=== PATIENT | male | born 1955 | race Hispanic/Latino ===

== ENCOUNTER 2019-12-28 14:17 | Inpatient (IN) | payer OTHER, SELFPAY ==
--- NOTE | 2019-12-28 15:01 | Emergency Department Report ---
ED Neuro Deficit HPI - General Chief Complaint: Extremity Injury, Lower Stated Complaint: FALL Time Seen by Provider: 12/28/19 14:49 Source: EMS Mode of arrival: Ambulatory Limitations: Physical Limitation - History of Present Illness Initial Comments: Patient is 64 years old male with history of hypertension. Patient brought to the emergency room via EMS for evaluation of right leg weakness. Patient stated that he woke up this morning around 7 AM and he wanted to walk and then his left leg gave up on him and fell. Patient stated that he did not hit his head or neck. Patient stated that since then he is unable to walk because his left leg is very weak. Patient also stated that he has been dizzy however he denied any visual symptoms or speech symptoms. Patient also denied any back pain or neck pain or any recent injury. Last when known time was 2:30 AM. First contact with the patient at 2:50 PM. Code stroke immediately initiated and patient moved to CT for stat CT brain without contrast. Stroke telemetry neurology immediately consulted. -: This morning Location: left leg History of same: No Place: home Associated Symptoms: denies other symptoms - Related Data Home Medications: Previous Rx's Medication Instructions Recorded Last Taken Type Aspirin EC [Halfprin EC] 81 mg PO QDAY #60 tablet 12/31/19 Unknown Rx AtorvaSTATin [Lipitor] 80 mg PO QHS #60 tablet 12/31/19 Unknown Rx Clopidogrel [Plavix] 75 mg PO QDAY #30 tablet 12/31/19 Unknown Rx Metoprolol 50 mg PO BID #60 12/31/19 Unknown Rx glipiZIDE [Glucotrol] 5 mg PO BID #60 12/31/19 Unknown Rx metFORMIN 500 mg PO BID #60 12/31/19 Unknown Rx Allergies/Adverse Reactions: Allergies Allergy/AdvReac Type Severity Reaction Status Date / Time No Known Allergies Allergy Unverified 12/28/19 17:33 ED Review of Systems ROS: Stated complaint: FALL Other details as noted in HPI Comment: All other systems reviewed and negative Constitutional: denies: chills, fever Respiratory: denies: cough Cardiovascular: denies: chest pain, palpitations Gastrointestinal: denies: abdominal pain, nausea, vomiting Musculoskeletal: denies: back pain Neurological: weakness. denies: headache ED Past Medical Hx - Past Medical History Previous Medical History?: Yes Hx Hypertension: Yes Hx Diabetes: Yes - Surgical History Past Surgical History?: No - Social History Smoking Status: Current Every Day Smoker - Medications Home Medications: Home Medications Medication Instructions Recorded Confirmed Last Taken Type Aspirin EC [Halfprin EC] 81 mg PO QDAY #60 tablet 12/31/19 Unknown Rx AtorvaSTATin [Lipitor] 80 mg PO QHS #60 tablet 12/31/19 Unknown Rx Clopidogrel [Plavix] 75 mg PO QDAY #30 tablet 12/31/19 Unknown Rx Metoprolol 50 mg PO BID #60 12/31/19 Unknown Rx glipiZIDE [Glucotrol] 5 mg PO BID #60 12/31/19 Unknown Rx metFORMIN 500 mg PO BID #60 12/31/19 Unknown Rx ED Neuro Physical Exam - General Limitations: Physical Limitation General appearance: alert, in no apparent distress Suspected Stroke: Yes - Head Head exam: Present: atraumatic, normocephalic, normal inspection - Eye Eye exam: Present: normal appearance - ENT ENT exam: Present: normal exam, normal orophraynx, mucous membranes moist - Neck Neck exam: Present: normal inspection, full ROM. Absent: tenderness, meningismus, lymphadenopathy, thyromegaly - Respiratory Respiratory exam: Present: normal lung sounds bilaterally - Cardiovascular Cardiovascular Exam: Present: regular rate, normal rhythm, normal heart sounds - GI/Abdominal GI/Abdominal exam: Present: soft, normal bowel sounds. Absent: distended, tenderness, guarding, rebound, rigid, organomegaly, mass, bruit, pulsatile mass, hernia - Extremities Exam Extremities exam: Present: normal inspection, full ROM, normal capillary refill. Absent: pedal edema, calf tenderness - Back Exam Back exam: Present: normal inspection, full ROM. Absent: CVA tenderness (R), CVA tenderness (L) - Neurological Exam Neurological exam: Present: alert, oriented X3, CN II-XII intact, motor sensory deficit - NIHSS Assessment Interval: Baseline 1a. Level of Consciousness: alert/keenly responsive 1b. LOC Questions: answers both correctly 1c. LOC Commands: performs tasks correctly 2. Best Gaze: normal 3. Visual: no visual loss 4. Facial Palsy: normal symmetrical movement 5b. Motor Arm Right: no drift 5a. Motor Arm Left: no drift 6a. Motor Leg Left: drift 6b. Motor Leg Right: no drift 7. Limb Ataxia: present 1 limb 8. Sensory: mild/moderate sensory loss 9. Best Language: no aphasia 10. Dysarthria: normal 11. Extinction/Inattention: no abnormality Total Score: 3 Stroke Severity: Minor Stroke - Psychiatric Psychiatric exam: Present: normal mood - Skin Skin exam: Present: warm, intact, normal color ED Course Vital Signs 12/28/19 12/28/19 12/28/19 14:24 14:29 14:31 Temperature 98.1 F Pulse Rate 88 90 Respiratory 13 12 Rate Blood Pressure 162/107 162/107 Blood Pressure 162/107 [Right] O2 Sat by Pulse 95 99 96 Oximetry 12/28/19 12/28/19 12/28/19 14:45 15:06 15:15 Temperature Pulse Rate 86 85 Respiratory 16 17 Rate Blood Pressure 162/107 180/104 180/104 Blood Pressure [Right] O2 Sat by Pulse 96 98 99 Oximetry 12/28/19 12/28/19 12/28/19 15:31 15:45 16:26 Temperature Pulse Rate 84 82 Respiratory 13 17 Rate Blood Pressure 180/104 180/104 180/104 Blood Pressure [Right] O2 Sat by Pulse 98 97 97 Oximetry 12/28/19 12/28/19 12/28/19 16:31 16:45 17:00 Temperature Pulse Rate 104 H 89 88 Respiratory 16 16 16 Rate Blood Pressure 180/104 180/104 176/111 Blood Pressure [Right] O2 Sat by Pulse 93 96 97 Oximetry 12/28/19 12/28/19 12/28/19 17:15 17:31 17:45 Temperature Pulse Rate 88 98 H 98 H Respiratory 16 11 L 19 Rate Blood Pressure 176/111 176/111 176/111 Blood Pressure [Right] O2 Sat by Pulse 98 97 97 Oximetry 12/28/19 12/28/19 12/28/19 18:01 18:15 18:31 Temperature Pulse Rate 86 84 103 H Respiratory 19 15 13 Rate Blood Pressure 183/108 183/108 183/108 Blood Pressure [Right] O2 Sat by Pulse 96 98 97 Oximetry 12/28/19 12/28/19 12/28/19 18:45 18:51 19:00 Temperature Pulse Rate 92 H 88 93 H Respiratory 19 16 14 Rate Blood Pressure 183/108 183/108 190/102 Blood Pressure [Right] O2 Sat by Pulse 96 97 98 Oximetry 12/28/19 12/28/19 12/28/19 19:11 19:21 19:31 Temperature Pulse Rate 113 H 91 H 86 Respiratory 13 15 15 Rate Blood Pressure 190/102 190/102 190/102 Blood Pressure [Right] O2 Sat by Pulse 97 98 97 Oximetry 12/28/19 12/28/19 12/28/19 19:41 19:55 20:00 Temperature Pulse Rate 111 H Respiratory 29 H Rate Blood Pressure 190/102 190/102 190/102 Blood Pressure [Right] O2 Sat by Pulse 99 95 Oximetry 12/28/19 20:27 Temperature Pulse Rate Respiratory Rate Blood Pressure 172/112 Blood Pressure [Right] O2 Sat by Pulse 83 L Oximetry - Lab Data Result diagrams: 12/30/19 08:41 12/30/19 08:41 Lab Results 12/28/19 12/28/19 12/28/19 Range/Units 15:26 15:26 15:26 WBC 18.9 H (4.5-11.0) K/mm3 RBC 4.84 (3.65-5.03) M/mm3 Hgb 14.9 (11.8-15.2) gm/dl Hct 43.2 (35.5-45.6) % MCV 89 (84-94) fl MCH 31 (28-32) pg MCHC 35 H (32-34) % RDW 13.1 L (13.2-15.2) % Plt Count 400 (140-440) K/mm3 Lymph % (Auto) 11.2 L (13.4-35.0) % [place] % (Auto) 7.8 H (0.0-7.3) % Eos % (Auto) 0.5 (0.0-4.3) % Baso % (Auto) 0.2 (0.0-1.8) % Lymph # 2.1 (1.2-5.4) K/mm3 [place] # 1.5 H (0.0-0.8) K/mm3 Eos # 0.1 (0.0-0.4) K/mm3 Baso # 0.0 (0.0-0.1) K/mm3 Seg Neutrophils % 80.3 H (40.0-70.0) % Seg Neutrophils # 15.2 H (1.8-7.7) K/mm3 PT 13.4 (12.2-14.9) Sec. INR 1.00 (0.87-1.13) APTT 26.3 (24.2-36.6) Sec. Thrombin Time 16.3 (15.1-19.6) Sec. Sodium 140 (137-145) mmol/L Potassium 2.8 L* (3.6-5.0) mmol/L Chloride 97.1 L (98-107) mmol/L Carbon Dioxide 30 (22-30) mmol/L Anion Gap 16 mmol/L BUN 9 (9-20) mg/dL Creatinine 0.7 L (0.8-1.3) mg/dL Estimated GFR > 60 ml/min BUN/Creatinine Ratio 13 % Glucose 170 H (75-100) mg/dL Hemoglobin A1c (4-6) % Calcium 9.2 (8.4-10.2) mg/dL Magnesium (1.7-2.3) mg/dL Total Bilirubin (0.1-1.2) mg/dL Direct Bilirubin (0-0.2) mg/dL Indirect Bilirubin mg/dL AST (5-40) units/L ALT (7-56) units/L Alkaline Phosphatase (35-129) units/L Total Creatine Kinase 181 H (55-170) units/L CK-MB (CK-2) 4.1 H (0.0-4.0) ng/mL CK-MB (CK-2) Rel Index 2.2 (0-4) Troponin T < 0.010 (0.00-0.029) ng/mL Total Protein (6.3-8.2) g/dL Albumin (3.9-5) g/dL Albumin/Globulin Ratio % 12/28/19 12/28/19 12/28/19 Range/Units 15:26 15:26 15:26 WBC (4.5-11.0) K/mm3 RBC (3.65-5.03) M/mm3 Hgb (11.8-15.2) gm/dl Hct (35.5-45.6) % MCV (84-94) fl MCH (28-32) pg MCHC (32-34) % RDW (13.2-15.2) % Plt Count (140-440) K/mm3 Lymph % (Auto) (13.4-35.0) % [place] % (Auto) (0.0-7.3) % Eos % (Auto) (0.0-4.3) % Baso % (Auto) (0.0-1.8) % Lymph # (1.2-5.4) K/mm3 [place] # (0.0-0.8) K/mm3 Eos # (0.0-0.4) K/mm3 Baso # (0.0-0.1) K/mm3 Seg Neutrophils % (40.0-70.0) % Seg Neutrophils # (1.8-7.7) K/mm3 PT (12.2-14.9) Sec. INR (0.87-1.13) APTT (24.2-36.6) Sec. Thrombin Time (15.1-19.6) Sec. Sodium (137-145) mmol/L Potassium (3.6-5.0) mmol/L Chloride (98-107) mmol/L Carbon Dioxide (22-30) mmol/L Anion Gap mmol/L BUN (9-20) mg/dL Creatinine (0.8-1.3) mg/dL Estimated GFR ml/min BUN/Creatinine Ratio % Glucose (75-100) mg/dL Hemoglobin A1c 9.1 H (4-6) % Calcium (8.4-10.2) mg/dL Magnesium 1.70 (1.7-2.3) mg/dL Total Bilirubin 0.50 (0.1-1.2) mg/dL Direct Bilirubin < 0.2 (0-0.2) mg/dL Indirect Bilirubin 0.3 mg/dL AST 20 (5-40) units/L ALT 15 (7-56) units/L Alkaline Phosphatase 77 (35-129) units/L Total Creatine Kinase (55-170) units/L CK-MB (CK-2) (0.0-4.0) ng/mL CK-MB (CK-2) Rel Index (0-4) Troponin T (0.00-0.029) ng/mL Total Protein 7.2 (6.3-8.2) g/dL Albumin 4.3 (3.9-5) g/dL Albumin/Globulin Ratio 1.5 % - EKG Data -: EKG Interpreted by Nd EKG shows normal: sinus rhythm Rate: normal Interpretation: no acute changes - Radiology Data Radiology results: report reviewed - Medical Decision Making Patient is 64 years old male with history of hypertension. Patient brought to the emergency room via EMS for evaluation of right leg weakness. Patient stated that he woke up this morning around 7 AM and he wanted to walk and then his left leg gave up on him and fell. Patient stated that he did not hit his head or neck. Patient stated that since then he is unable to walk because his left leg is very weak. Patient also stated that he has been dizzy however he denied any visual symptoms or speech symptoms. Patient also denied any back pain or neck pain or any recent injury. Last when known time was 2:30 AM. First contact with the patient at 2:50 PM. Code stroke immediately initiated and patient moved to CT for stat CT brain without contrast. Stroke telemetry neurology immediately consulted. Patient is not a TPA candidate since he is out of the window. Dr. Carlson stated that patient does not have symptoms of large vessels occlusion. She recommended patient to be admitted for stroke work-up. I discussed the patient with Dr. Raygoza, he agreed to admit the patient to medical service for further management. Critical Care Time: Yes Critical care time in (mins) excluding proc time.: 30 Critical care attestation.: If time is entered above; I have spent that time in minutes in the direct care of this critically ill patient, excluding procedure time. ED Disposition Clinical Impression: Cerebrovascular accident Qualifiers: Laterality of affected vessel: left Disposition: DC-09 OP ADMIT IP TO THIS HOSP Is pt being admited?: Yes Condition: Stable
--- NOTE | 2019-12-28 15:18 | Consultation ---
History of Present Illness Consult date: 12/28/19 History of present illness: [facility] Date of Service: 12/28/2019 14:57:28 Impression: Rule Out Acute Ischemic Stroke Right Hemispheric Infarct Comments/Sign-Out: Right hemispheric minor subcortical ischemic stroke, out of window for IV tPA. No cortical signs and low NIHSS, LVO unlikely. Metrics: Last Known Well: 12/28/2019 02:30:00 [facility] Notification Time: 12/28/2019 14:56:44 Arrival Time: 12/28/2019 14:41:00 Stamp Time: 12/28/2019 14:57:28 Time First Login Attempt: 12/28/2019 14:59:00 Video Start Time: 12/28/2019 14:59:00 Symptoms: left leg weakness NIHSS Start Assessment Time: 12/28/2019 15:05:51 Patient is not a candidate for tPA. Patient was not deemed candidate for tPA thrombolytics because of Last Well Known Above 4.5 Hours. Video End Time: 12/28/2019 15:11:03 CT head showed no acute hemorrhage or acute core infarct. Clinical Presentation is not Suggestive of Large Vessel Occlusive Disease ED Physician notified of diagnostic impression and management plan on 12/28/2019 15:11:06 Our recommendations are outlined below. Recommendations: Activate Stroke Protocol Admission/Order Set Stroke/Telemetry Floor Neuro Checks Bedside Swallow Eval DVT Prophylaxis IV Fluids, Normal Saline Head of Bed 30 Degrees Euglycemia and Avoid Hyperthermia (PRN Acetaminophen) Initiate Aspirin 81 MG Daily Initiate Plavix 75 MG Daily Atorvastatin 80mg Permissive HTN Ischemic stroke order set Routine Consultation with Inhouse Neurology for Follow up Care Sign Out: Discussed with Emergency Department Provider History of Present Illness: Patient is a 64 year old Male. Left handed Patient was brought by EMS for symptoms of left leg weakness Woke up with left leg pain and weakness, lost balance. Last known normal 2:30 when he used restroom. HTN and DM. On daily ASA. Active smoker. No stroke h istory. Also left arm weakness. No speech or visual impairment. Symptoms unchanged since onset/awareness. Past Medical History: Hypertension Diabetes Mellitus Anticoagulant use: No Antiplatelet use: aspirin Examination: BP(162/107), Blood Glucose(pending) 1A: Level of Consciousness - Alert; keenly responsive + 0 1B: Ask Month and Age - Both Questions Right + 0 1C: Blink Eyes & Squeeze Hands - Performs Both Tasks + 0 2: Test Horizontal Extraocular Movements - Normal + 0 3: Test Visual Prince - No Visual Loss + 0 4: Test Facial Palsy (Use Grimace if Obtunded) - Normal symmetry + 0 5A: Test Left Arm Motor Drift - Drift, but doesn't hit bed + 1 5B: Test Right Arm Motor Drift - No Drift for 10 Seconds + 0 6A: Test Left Leg Motor Drift - Drift, but doesn't hit bed + 1 6B: Test Right Leg Motor Drift - No Drift for 5 Seconds + 0 7: Test Limb Ataxia (FNF/Heel-Ramirez) - Ataxia in 1 Limb + 1 8: Test Sensation - Normal; No sensory loss + 0 9: Test Language/Aphasia - Normal; No aphasia + 0 10: Test Dysarthria - Normal + 0 11: Test Extinction/Inattention - No abnormality + 0 NIHSS Score: 3 Patient/Family was informed the Neurology Consult would happen via TeleHealth consult by way of interactive audio and video telecommunications and consented to receiving care in this manner. Due to the immediate potential for life-threatening deterioration due to underlying acute neurologic illness, I spent 35 minutes providing critical care. This time includes time for face to face visit via telemedicine, review of medical records, imaging studies and discussion of findings with providers, the patient and/or family. Dr Latoya Jauregui [facility] Case [id number] Physical Examination - Vital Signs Vital Signs: Vital Signs Temp Pulse Resp BP Pulse Ox 98.2 F 88 13 162/107 99 12/28/19 14:29 12/28/19 14:29 12/28/19 14:29 12/28/19 14:29 12/28/19 14:29
--- NOTE | 2019-12-28 15:22 | Cat Scan Report ---
CT head/brain wo con INDICATION: Stroke symptoms. TECHNIQUE: Routine CT head without contrast. All CT scans at this location are performed using CT dos e reduction for ALARA by means of automated exposure control. COMPARISON: None. FINDINGS: BRAIN / INTRACRANIAL CONTENTS: No acute hemorrhage, mass effect, midline shift, or hydrocephalus. No appreciable acute large territorial or lacunar infarct. There are bilateral chronic appearing lacunar infarcts in the gangliocapsular regions. There is moderate chronic small vessel ischemic change in t he cerebral white matter. ORBITS: No significant abnormality of visualized orbits. SINUSES / MASTOIDS: No significant abnormality of visualized sinuses and mastoid air cells. ADDITIONAL FINDINGS: None. IMPRESSION: 1. No definite acute infarct or other acute intracranial abnormality. 2. Bilateral chronic appearing lacunar infarcts in the gangliocapsular regions. Signer Name: Luisito Myers MD Signed: 12/28/2019 3:17 PM Workstation Name: [id number]
[2019-12-28 15:53] LABS: Basophils % (Auto) 0.2 % (0.0-1.8); Eosinophils # (Auto) 0.1 K/mm3 (0.0-0.4); Eosinophils % (Auto) 0.5 % (0.0-4.3); Hematocrit 43.2 % (35.5-45.6); Hemoglobin 14.9 gm/dl (11.8-15.2); Lymphocytes # (Auto) 2.1 K/mm3 (1.2-5.4); Lymphocytes % (Auto) 11.2 % (13.4-35.0); Mean Corpuscular HGB Conc 35 % (32-34); Mean Corpuscular Volume 89 fl (84-94); Monocytes # (Auto) 1.5 K/mm3 (0.0-0.8); Monocytes % (Auto) 7.8 % (0.0-7.3); Platelet Count 400 K/mm3 (140-440); Red Blood Count 4.84 M/mm3 (3.65-5.03); Red Cell Distribution Width 13.1 % (13.2-15.2)
--- NOTE | 2019-12-28 15:55 | XRay Report ---
CHEST 1 VIEW INDICATION / CLINICAL INFORMATION: stroke. COMPARISON: None available. FINDINGS: SUPPORT DEVICES: None. HEART / MEDIASTINUM: No significant abnormality. LUNGS / PLEURA: No significant pulmonary or pleural abnormality. No pneumothorax. ADDITIONAL FINDINGS: No significant additional findings. IMPRESSION: No acute cardiopulmonary abnormality. Signer Name: Edinson Goel MD Signed: 12/28/2019 3:51 PM Workstation Name: [id number]
[2019-12-28 16:06] LABS: Creatine Kinase MB 4.1 ng/mL (0.0-4.0)
[2019-12-28 16:09] LABS: Blood Urea Nitrogen 9 mg/dL (9-20); Calcium 9.2 mg/dL (8.4-10.2); Hemolysis Index 6
[2019-12-28 16:10] LABS: BUN/Creatinine Ratio 13
[2019-12-28 16:12] LABS: Alanine Aminotransferase 15 units/L (7-56); Albumin 4.3 g/dL (3.9-5)
[2019-12-28 16:14] LABS: Bilirubin,Direct < 0.2 mg/dL (0-0.2); Partial Thromboplastin Time 26.3 Sec. (24.2-36.6); Thrombin Time 16.3 Sec. (15.1-19.6)
[2019-12-28] MEDS ORDERED: ONDANSETRON 4 MG/2 ML INJ IV PRN ×2 (17:48)
[2019-12-28] MEDS ORDERED: METOCLOPRAMIDE 10 MG TAB PO PRN (17:48)
[2019-12-28] MEDS ORDERED: PROMETHAZINE 25 MG RECT SUPP PR PRN (17:48)
[2019-12-28] MEDS ORDERED: DOCUSATE SODIUM 100 MG CAP PO PRN (17:48)
[2019-12-28] MEDS ORDERED: DEXTROSE 50% IN WATER (25GM) 50 ML SYRINGE IV PRN (17:48)
[2019-12-28] MEDS ORDERED: ACETAMINOPHEN 325 MG TAB PO PRN ×2 (17:48)
[2019-12-28] MEDS ORDERED: MAGNESIUM HYDROXIDE (MOM) ORAL LIQD UDC PO PRN (17:48)
[2019-12-28 18:22] LABS: Bilirubin,Urine NEG (Negative); Blood,Urine NEG (Negative); Color,Urine Yellow (Yellow); Mucus,Urine FEW /HPF; Protein,Urine <15 mg/dL mg/dL (Negative); Urobilinogen,Urine < 2.0 mg/dL (<2.0)
[2019-12-28] MEDS: POTASSIUM CHLORIDE 10 MEQ 10 MEQ/100 ML BAG IV SCH ×2 (18:29→18:48)
[2019-12-28] MEDS ORDERED: POTASSIUM CHLORIDE ER 20 MEQ TAB PO ONE (18:41)
[2019-12-28] MEDS: POTASSIUM CHLORIDE ER 20 MEQ TAB PO SCH ×2 (18:42→22:36)
[2019-12-28] MEDS ORDERED: POTASSIUM CHLORIDE 10 MEQ 10 MEQ/100 ML BAG IV ONE (18:46)
--- NOTE | 2019-12-28 19:17 | History and Physical Report ---
History of Present Illness Date of examination: 12/28/19 Date of admission: 12/28/19 17:50 Chief complaint: Left-sided weakness History of present illness: Macho Lyons is a 64 years old male with history of hypertension, and diabetes. was to the emergency room via EMS for evaluation of left leg weakness. Patient stated that he woke up this morning around 7 AM and he wanted to walk and then his left leg gave up on him and fell. Patient stated that he did not hit his head or neck but bruised his left fore arm. he denied any visual symptoms or speech symptoms. Patient also denied any back pain or neck pain or any recent injury. Last when known time was 2:30 AM last night Telemetry neurology consult started by ED physician and he was deemed outside the window for TPA administration Patient is being admitted for suspected stroke Past History Past Medical History: CAD (History of CA in 2019), diabetes, hypertension Past Surgical History: No surgical history Social history: smoking Family history: no significant family history (Patient denied any history of diabetes or hypertension in the family) Medications and Allergies Allergies Allergy/AdvReac Type Severity Reaction Status Date / Time No Known Allergies Allergy Unverified 12/28/19 17:33 Active Meds: Active Medications Acetaminophen (Tylenol) 650 mg PO Q4H PRN PRN Reason: Pain MILD(1-3)/Fever >100.5/NAGEL Aspirin (Aspirin) 325 mg PO QDAY [place] Atorvastatin Calcium (Lipitor) 40 mg PO QHS [place] Bisacodyl (Dulcolax) 10 mg ND QDAY PRN PRN Reason: Constipation Dextrose (D50w (25gm) Syringe) 50 ml IV Q30MIN PRN; Protocol PRN Reason: Hypoglycemia Docusate Sodium (Colace) 100 mg PO BID PRN PRN Reason: Constipation Heparin Sodium (Porcine) (Heparin) 5,000 unit SUB-Q Q8HR [facility] Sodium Chloride (Nacl 0.9% 1000 Ml) 1,000 mls @ 42 mls/hr IV DIRECT [facility] Insulin Human Lispro (Humalog) 0 unit SUB-Q ACHS [facility]; Protocol Labetalol HCl (Labetalol) 10 mg IV Q5MIN PRN PRN Reason: to maintain SBP < 180 Magnesium Hydroxide (Milk Of Magnesia) 30 ml PO Q4H PRN PRN Reason: Constipation Metoclopramide HCl (Reglan) 10 mg PO Q6H PRN PRN Reason: Nausea And Vomiting Ondansetron HCl (Zofran) 4 mg IV Q8H PRN PRN Reason: Nausea And Vomiting Potassium Chloride (K-Dur) 40 meq PO Q4H [facility] Stop: 12/28/19 22:01 Last Admin: 12/28/19 18:42 Dose: 40 meq Documented by: Promethazine HCl (Phenergan) 25 mg ND Q6H PRN PRN Reason: Nausea And Vomiting Sodium Chloride (Sodium Chloride Flush Syringe 10 Ml) 10 ml IV BID [place] Sodium Chloride (Sodium Chloride Flush Syringe 10 Ml) 10 ml IV PRN PRN PRN Reason: LINE FLUSH Sodium Chloride (Sodium Chloride Flush Syringe 10 Ml) 10 ml IV PRN PRN PRN Reason: LINE FLUSH Review of Systems Constitutional: no weight loss, no fever, no chills, no fatigue Ears, nose, mouth and throat: no ear pain, no sore throat, no headache Cardiovascular: high blood pressure, no chest pain, no palpitations, no syncope, no lightheadedness, no shortness of breath Respiratory: no cough, no shortness of breath Gastrointestinal: no abdominal pain, no nausea, no vomiting, no diarrhea, no constipation, no melena Genitourinary Male: no dysuria, no hematuria Rectal: no pain Musculoskeletal: no low back pain Integumentary: no rash Neurological: no head injury, no vertigo, no headaches Psychiatric: no anxiety, no depression Exam - Constitutional Vitals: Temp Pulse Resp BP Pulse Ox 98.2 F 92 H 19 183/108 96 12/28/19 14:29 12/28/19 18:45 12/28/19 18:45 12/28/19 18:45 12/28/19 18:45 General appearance: Present: no acute distress, well-nourished - EENT Eyes: Present: PERRL, EOM intact ENT: hearing intact, clear oral mucosa - Neck Neck: Present: supple, normal ROM. Absent: masses or JVD, carotid bruits - Respiratory Respiratory effort: normal Respiratory: bilateral: CTA - Cardiovascular Rhythm: regular Heart Sounds: Present: S1 & S2 - Extremities Extremities: No edema Peripheral Pulses: within normal limits - Abdominal General gastrointestinal: Present: soft, non-tender. Absent: hepatomegaly, splenomegaly Male genitourinary: Present: deferred - Rectal Rectal Exam: deferred - Integumentary Integumentary: Present: clear, warm - Musculoskeletal Musculoskeletal: left sided weakness - Psychiatric Psychiatric: appropriate mood/affect - Neurologic Neurologic: CNII-XII intact (Motor power in the left upper and lower extremities 4/5 with drift in both left arm and left leg) HEART Score - HEART Score Troponin: Troponin T < 0.010 ng/mL (0.00-0.029) 12/28/19 15: Results - Labs CBC & Chem 7: 12/28/19 15:26 12/28/19 15: Labs: Abnormal lab results 12/28/19 12/28/19 12/28/19 Range/Units 15:: 15: WBC 18.9 H (4.5-11.0) K/mm3 MCHC 35 H (32-34) % RDW 13.1 L (13.2-15.2) % Lymph % (Auto) 11.2 L (13.4-35.0) % [place] % (Auto) 7.8 H (0.0-7.3) % [place] # 1.5 H (0.0-0.8) K/mm3 Seg Neutrophils % 80.3 H (40.0-70.0) % Seg Neutrophils # 15.2 H (1.8-7.7) K/mm3 D-Dimer (0-234) ng/mlDDU Potassium 2.8 L* (3.6-5.0) mmol/L Chloride 97.1 L (98-107) mmol/L Creatinine 0.7 L (0.8-1.3) mg/dL Glucose 170 H (75-100) mg/dL Hemoglobin A1c 9.1 H (4-6) % Total Creatine Kinase 181 H (55-170) units/L CK-MB (CK-2) 4.1 H (0.0-4.0) ng/mL 12/28/19 Range/Units 18:15 WBC (4.5-11.0) K/mm3 MCHC (32-34) % RDW (13.2-15.2) % Lymph % (Auto) (13.4-35.0) % [place] % (Auto) (0.0-7.3) % [place] # (0.0-0.8) K/mm3 Seg Neutrophils % (40.0-70.0) % Seg Neutrophils # (1.8-7.7) K/mm3 D-Dimer 421.86 H (0-234) ng/mlDDU Potassium (3.6-5.0) mmol/L Chloride (98-107) mmol/L Creatinine (0.8-1.3) mg/dL Glucose (75-100) mg/dL Hemoglobin A1c (4-6) % Total Creatine Kinase (55-170) units/L CK-MB (CK-2) (0.0-4.0) ng/mL Assessment and Plan - Patient Problems (1) Cerebrovascular accident Current Visit: Yes Status: Acute Qualifiers: Laterality of affected vessel: left Plan to address problem: CT of the head results reviewed 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 Echocardiogram MRI of the brain neurology consult PT/OT/speech therapy evaluation However may start on diet if bedside swallowing is successful Aspirin 325 daily High intensity statin Lipid panel (2) Hypertensive urgency Current Visit: Yes Status: Acute Plan to address problem: Permissive hypertension for the first 24 to 48 hours IV labetalol for BP systolic greater than 220 May consider decreasing blood pressure by 15% after 24 hours (3) Hypokalemia Current Visit: Yes Status: Acute Plan to address problem: Unclear etiology Patient's home medication list is not available Suspect medication induced IV and oral potassium ordered Monitor electrolytes Check magnesium level (4) Neutrophilic leukocytosis Current Visit: Yes Status: Acute Plan to address problem: Unclear etiology ? Reactive Chest x-ray reviewed Check UA Recheck CBC in a.m. Hold off on antibiotic (5) Type 2 diabetes mellitus Current Visit: Yes Status: Chronic Qualifiers: Diabetes mellitus fdc insulin use: without long term care social worker use Plan to address problem: Initiate insulin sliding scale coverage Check A1c
[2019-12-28] MEDS: HEPARIN 5,000 UNIT/1 ML VIAL SUB-Q SCH (22:37)
[2019-12-29] MEDS: SODIUM CHLORIDE 0.9% 1000 ML 1,000 ML IV SCH (02:30)
[2019-12-29 06:31] LABS: Basophils % (Auto) 0.3 % (0.0-1.8); Eosinophils # (Auto) 0.1 K/mm3 (0.0-0.4); Eosinophils % (Auto) 0.5 % (0.0-4.3); Hematocrit 46.8 % (35.5-45.6); Hemoglobin 16.1 gm/dl (11.8-15.2); Lymphocytes # (Auto) 2.6 K/mm3 (1.2-5.4); Lymphocytes % (Auto) 18.1 % (13.4-35.0); Mean Corpuscular HGB Conc 35 % (32-34); Mean Corpuscular Volume 90 fl (84-94); Monocytes # (Auto) 1.3 K/mm3 (0.0-0.8); Monocytes % (Auto) 8.9 % (0.0-7.3); Platelet Count 405 K/mm3 (140-440); Red Cell Distribution Width 13.2 % (13.2-15.2)
[2019-12-29] MEDS: HEPARIN 5,000 UNIT/1 ML VIAL SUB-Q SCH ×3 (06:52→21:51)
[2019-12-29 07:04] LABS: Blood Urea Nitrogen 10 mg/dL (9-20); Calcium 9.5 mg/dL (8.4-10.2); HDL Cholesterol 62 mg/dL (40-59); Hemolysis Index 17; LDL Cholesterol,Direct 128 mg/dL (50-130)
[2019-12-29 07:11] LABS: BUN/Creatinine Ratio 20
[2019-12-29] MEDS: ASPIRIN 325 MG TAB PO SCH (09:03)
[2019-12-29] MEDS: INSULIN LISPRO 100 UNIT/ML VIAL 3 mL SUB-Q SCH ×5 (09:22→23:12)
[2019-12-29] MEDS ORDERED: LORazepam 2 MG/ML VIAL IV ONE (10:45)
[2019-12-29] MEDS ORDERED: POTASSIUM CHLORIDE ER 20 MEQ TAB PO ONE (11:53)
--- NOTE | 2019-12-29 11:59 | Progress Note ---
Assessment and Plan Assessment and plan: 64 years old male with history of hypertension, and diabetes presented to emergency room via EMS for evaluation of left leg weakness. Patient stated that he woke up around 7 AM and he wanted to walk and then his left leg gave up on him and fell. Patient stated that he did not hit his head or neck but bruised his left fore arm. he denied any visual symptoms or speech symptoms. Patient also denied any back pain or neck pain or any recent injury. Last when known time was 2:30 AM the night prior to presentation Here in the ER, telemetry neurology was consulted and he was deemed outside the window for TPA administration. Patient was started on aspirin and admitted to the hospital for further evaluation His CT head showed no acute stroke. He has chronic infarcts. 12/28. Patient seen and examined at bedside this morning. Patient has left- sided weakness. CTA head and neck, MRI brain pending. PT/OT ordered. Neurology on board - Patient Problems (1) Cerebrovascular accident Current Visit: Yes Status: Acute Qualifiers: Laterality of affected vessel: left Plan to address problem: Patient has left-sided weakness on exam. CT head performed on admission showed no acute infarct but showed chronic infarct. Patient is on aspirin 325 mg and statins Neurology has been consulted Plan for CTA head and neck and MRI of the brain today Echocardiogram also pending Patient has been advised to stop tobacco abuse (2) Hypertensive urgency Current Visit: Yes Status: Acute Plan to address problem: Continue to monitor blood pressure closely. Maintain permissive hypertension for 24 to 48 hours (3) Hypokalemia Current Visit: Yes Status: Acute Plan to address problem: Replete potassium and monitor (4) Neutrophilic leukocytosis Current Visit: Yes Status: Acute Plan to address problem: Improved. UA and chest xray shows no UTI or PNA. Continue to monitor (5) Type 2 diabetes mellitus Current Visit: Yes Status: Chronic Qualifiers: Diabetes mellitus intermission coordinator insulin use: without skilled nursing use Plan to address problem: Continue sliding scale insulin for now and resume home glipizide at discharge. Add lantus at night Hb A1C 9.1 (6) DVT prophylaxis Current Visit: Yes Status: Acute Plan to address problem: Lovenox History Interval history: See assessment and plan Hospitalist Physical - Constitutional Vitals: Temp Pulse Resp BP Pulse Ox 98.9 F 90 18 141/100 97 12/29/19 04:49 12/29/19 06:02 12/29/19 06:02 12/29/19 04:49 12/28/19 23:35 General appearance: Present: no acute distress, well-nourished - EENT Eyes: Present: PERRL - Neck Neck: Present: supple - Respiratory Respiratory effort: normal Respiratory: bilateral: CTA - Cardiovascular Heart Sounds: Present: S1 & S2 - Extremities Extremities: No edema - Abdominal General gastrointestinal: soft, non-tender, non-distended, normal bowel sounds - Neurologic Neurologic: focal deficits (Left sided facial droop and left UE and LE weakness) HEART Score - HEART Score Troponin: Troponin T < 0.010 ng/mL (0.00-0.029) 12/28/19 15:26 Results - Labs CBC & Chem 7: 12/29/19 05:21 12/29/19 05:21 Labs: Laboratory Last Values WBC 14.6 K/mm3 (4.5-11.0) H 12/29/19 05:21 RBC 5.20 M/mm3 (3.65-5.03) H 12/29/19 05:21 Hgb 16.1 gm/dl (11.8-15.2) H 12/29/19 05:21 Hct 46.8 % (35.5-45.6) H 12/29/19 05:21 MCV 90 fl (84-94) 12/29/19 05:21 MCH 31 pg (28-32) 12/29/19 05:21 MCHC 35 % (32-34) H 12/29/19 05:21 RDW 13.2 % (13.2-15.2) 12/29/19 05:21 Plt Count 405 K/mm3 (140-440) 12/29/19 05:21 Lymph % (Auto) 18.1 % (13.4-35.0) 12/29/19 05:21 Stephenson % (Auto) 8.9 % (0.0-7.3) H 12/29/19 05:21 Eos % (Auto) 0.5 % (0.0-4.3) 12/29/19 05:21 Baso % (Auto) 0.3 % (0.0-1.8) 12/29/19 05:21 Lymph # 2.6 K/mm3 (1.2-5.4) 12/29/19 05:21 Stephenson # 1.3 K/mm3 (0.0-0.8) H 12/29/19 05:21 Eos # 0.1 K/mm3 (0.0-0.4) 12/29/19 05:21 Baso # 0.0 K/mm3 (0.0-0.1) 12/29/19 05:21 Seg Neutrophils % 72.2 % (40.0-70.0) H 12/29/19 05:21 Seg Neutrophils # 10.5 K/mm3 (1.8-7.7) H 12/29/19 05:21 PT 13.4 Sec. (12.2-14.9) 12/28/19 15:26 INR 1.00 (0.87-1.13) 12/28/19 15:26 APTT 26.3 Sec. (24.2-36.6) 12/28/19 15:26 Thrombin Time 16.3 Sec. (15.1-19.6) 12/28/19 15:26 D-Dimer 421.86 ng/mlDDU (0-234) H 12/28/19 18:15 Sodium 138 mmol/L (137-145) 12/29/19 05:21 Potassium 3.4 mmol/L (3.6-5.0) L D 12/29/19 05:21 Chloride 95.1 mmol/L (98-107) L 12/29/19 05:21 Carbon Dioxide 25 mmol/L (22-30) 12/29/19 05:21 Anion Gap 21 mmol/L 12/29/19 05:21 BUN 10 mg/dL (9-20) 12/29/19 05:21 Creatinine 0.5 mg/dL (0.8-1.3) L 12/29/19 05:21 Estimated GFR > 60 ml/min 12/29/19 05:21 BUN/Creatinine Ratio 20 % 12/29/19 05:21 Glucose 242 mg/dL (75-100) H 12/29/19 05:21 Hemoglobin A1c 9.1 % (4-6) H 12/28/19 15:26 Calcium 9.5 mg/dL (8.4-10.2) 12/29/19 05:21 Magnesium 1.70 mg/dL (1.7-2.3) 12/28/19 15:26 Total Bilirubin 0.50 mg/dL (0.1-1.2) 12/28/19 15:26 Direct Bilirubin < 0.2 mg/dL (0-0.2) 12/28/19 15:26 Indirect Bilirubin 0.3 mg/dL 12/28/19 15:26 AST 20 units/L (5-40) 12/28/19 15:26 ALT 15 units/L (7-56) 12/28/19 15:26 Alkaline Phosphatase 77 units/L (35-129) 12/28/19 15:26 Total Creatine Kinase 181 units/L (55-170) H 12/28/19 15:26 CK-MB (CK-2) 4.1 ng/mL (0.0-4.0) H 12/28/19 15:26 CK-MB (CK-2) Rel Index 2.2 (0-4) 12/28/19 15:26 Troponin T < 0.010 ng/mL (0.00-0.029) 12/28/19 15:26 Total Protein 7.2 g/dL (6.3-8.2) 12/28/19 15:26 Albumin 4.3 g/dL (3.9-5) 12/28/19 15:26 Albumin/Globulin Ratio 1.5 % 12/28/19 15:26 Triglycerides 223 mg/dL (2-149) H 12/29/19 05:21 Cholesterol 211 mg/dL (50-199) H 12/29/19 05:21 LDL Cholesterol Direct 128 mg/dL (50-130) 12/29/19 05:21 HDL Cholesterol 62 mg/dL (40-59) H 12/29/19 05:21 Cholesterol/HDL Ratio 3.40 % 12/29/19 05:21 Urine Color Yellow (Yellow) 12/28/19 17:51 Urine Turbidity Slightly-cloudy (Clear) 12/28/19 17:51 Urine pH 7.0 (5.0-7.0) 12/28/19 17:51 Ur Specific Buchanan 1.010 (1.003-1.030) 12/28/19 17:51 Urine Protein <15 mg/dl mg/dL (Negative) 12/28/19 17:51 Urine Glucose (UA) 50 mg/dL (Negative) 12/28/19 17:51 Urine Ketones Neg mg/dL (Negative) 12/28/19 17:51 Urine Blood Neg (Negative) 12/28/19 17:51 Urine Nitrite Neg (Negative) 12/28/19 17:51 Urine Bilirubin Neg (Negative) 12/28/19 17:51 Urine Urobilinogen < 2.0 mg/dL (<2.0) 12/28/19 17:51 Ur Leukocyte Esterase Neg (Negative) 12/28/19 17:51 Urine WBC (Auto) 2.0 /HPF (0.0-6.0) 12/28/19 17:51 Urine RBC (Auto) 1.0 /HPF (0.0-6.0) 12/28/19 17:51 Urine Mucus Few /HPF 12/28/19 17:51 Urine Yeast (Budding) Few /HPF 12/28/19 17:51 Rangel/IV: Voiding Method Urinal IV Catheter Type [Right INT / Saline Lock Antecubital] Active Medications - Current Medications Current Medications: Generic Name Dose Route Start Last Admin Trade Name Freq PRN Reason Stop Dose Admin Acetaminophen 650 mg 12/28/19 17:48 12/29/19 09:03 Tylenol PO 650 mg Q4H PRN Administration Pain MILD(1-3)/Fever >100.5/NAGEL Aspirin 325 mg 12/29/19 10:00 12/29/19 09:03 Aspirin PO 325 mg QDAY [facility] Administration Atorvastatin Calcium 40 mg 12/28/19 22:00 12/28/19 22:37 Lipitor PO 40 mg QHS [facility]IGH Administration Bisacodyl 10 mg 12/28/19 17:48 Dulcolax PA QDAY PRN Constipation Dextrose 50 ml 12/28/19 17:48 D50w (25gm) Syringe IV Q30MIN PRN Hypoglycemia Protocol Docusate Sodium 100 mg 12/28/19 17:48 Colace PO BID PRN Constipation Heparin Sodium (Porcine) 5,000 unit 12/28/19 22:00 12/29/19 06:52 Heparin SUB-Q 5,000 unit Q8HR HALEIGH Administration Sodium Chloride 1,000 mls @ 42 mls/hr 12/28/19 18:00 12/29/19 02:30 Nacl 0.9% 1000 Ml IV 42 mls/hr DIRECT [facility]IGH Administration Insulin Human Lispro 0 unit 12/28/19 22:00 12/29/19 09:22 Humalog SUB-Q 300 unit ACHS [facility] Administration Protocol Labetalol HCl 10 mg 12/28/19 17:48 Labetalol IV Q5MIN PRN to maintain SBP < 180 Magnesium Hydroxide 30 ml 12/28/19 17:48 Milk Of Magnesia PO Q4H PRN Constipation Metoclopramide HCl 10 mg 12/28/19 17:48 Reglan PO Q6H PRN Nausea And Vomiting Ondansetron HCl 4 mg 12/28/19 17:48 Zofran IV Q8H PRN Nausea And Vomiting Potassium Chloride 40 meq 12/29/19 11:53 K-Dur PO 12/29/19 11:54 ONCE ONE Promethazine HCl 25 mg 12/28/19 17:48 Phenergan PA Q6H PRN Nausea And Vomiting Sodium Chloride 10 ml 12/28/19 22:00 12/28/19 22:37 Sodium Chloride Flush Syringe 10 Ml IV 10 ml BID [facility]IGH Administration Sodium Chloride 10 ml 12/28/19 17:48 Sodium Chloride Flush Syringe 10 Ml IV PRN PRN LINE FLUSH
--- NOTE | 2019-12-29 13:49 | Consultation ---
History of Present Illness Consult date: 12/29/19 Reason for Consult: Left sided weakness Chief complaint: Left sided weakness History of present illness: Patient is a 64 y/o man w/ a h/o HTN, DM, CAD, and current smoker. He presented yesterday with symptoms of LLE and LUE weakness, which began when he woke up on the morning and tried to walk. He was last known normal the night before at about 2:30am. He also c/o dizziness. He fell when he tried to walk due to LLE weakness. He takes ASA daily at home. Past History Past Medical History: CAD (History of MT in 2019), diabetes, hypertension Past Surgical History: No surgical history Social history: smoking Family history: no significant family history (Patient denied any history of diabetes or hypertension in the family) Medications and Allergies Allergies Allergy/AdvReac Type Severity Reaction Status Date / Time No Known Allergies Allergy Unverified 12/28/19 17:33 Home Medications Medication Instructions Recorded Confirmed Last Taken Type Metoprolol 50 mg PO BID 12/29/19 12/29/19 Unknown History glipiZIDE [Glucotrol] 5 mg PO BID 12/29/19 12/29/19 Unknown History metFORMIN 500 mg PO BID 12/29/19 12/29/19 Unknown History Active Meds: Active Medications Acetaminophen (Tylenol) 650 mg PO Q4H PRN PRN Reason: Pain MILD(1-3)/Fever >100.5/NAGEL Last Admin: 12/29/19 09:03 Dose: 650 mg Documented by: Aspirin (Aspirin) 325 mg PO QDAY [facility] Last Admin: 12/29/19 09:03 Dose: 325 mg Documented by: Atorvastatin Calcium (Lipitor) 40 mg PO QHS [facility] Last Admin: 12/28/19 22:37 Dose: 40 mg Documented by: Bisacodyl (Dulcolax) 10 mg MN QDAY PRN PRN Reason: Constipation Dextrose (D50w (25gm) Syringe) 50 ml IV Q30MIN PRN; Protocol PRN Reason: Hypoglycemia Docusate Sodium (Colace) 100 mg PO BID PRN PRN Reason: Constipation Heparin Sodium (Porcine) (Heparin) 5,000 unit SUB-Q Q8HR [facility] Last Admin: 12/29/19 06:52 Dose: 5,000 unit Documented by: Sodium Chloride (Nacl 0.9% 1000 Ml) 1,000 mls @ 42 mls/hr IV DIRECT [facility]ALEIGH Last Admin: 12/29/19 02:30 Dose: 42 mls/hr Documented by: Insulin Glargine (Lantus) 10 units SUB-Q QHS [facility] Insulin Human Lispro (Humalog) 0 unit SUB-Q ACHS HALEIGH; Protocol Last Admin: 12/29/19 12:29 Dose: Not Given Documented by: Labetalol HCl (Labetalol) 10 mg IV Q5MIN PRN PRN Reason: to maintain SBP < 180 Magnesium Hydroxide (Milk Of Magnesia) 30 ml PO Q4H PRN PRN Reason: Constipation Metoclopramide HCl (Reglan) 10 mg PO Q6H PRN PRN Reason: Nausea And Vomiting Ondansetron HCl (Zofran) 4 mg IV Q8H PRN PRN Reason: Nausea And Vomiting Promethazine HCl (Phenergan) 25 mg MN Q6H PRN PRN Reason: Nausea And Vomiting Sodium Chloride (Sodium Chloride Flush Syringe 10 Ml) 10 ml IV BID [facility] Last Admin: 12/28/19 22:37 Dose: 10 ml Documented by: Sodium Chloride (Sodium Chloride Flush Syringe 10 Ml) 10 ml IV PRN PRN PRN Reason: LINE FLUSH Review of Systems All systems: negative Neurological: weakness Physical Examination - Vital Signs Vital Signs: Vital Signs Pulse Ox 95 12/28/19 14:24 - Physical Exam Narrative exam: Patient is alert, awake, oriented x4, follows complex commands. No dysarthria or aphasia noted. PERRL, right gaze preference, Lt. HH, tongue midline, bilaterally intact to LT, left lower facial weakness noted. 5/5 strength in RUE/RLE, 2/5 in LUE, 3/5 in LLE. Decreased on left to light touch. - Level of Consciousness 1a. Level of Consciousness: alert/keenly responsive - LOC Questions 1b. LOC Questions: answers both correctly - LOC Command 1c. LOC Commands: performs tasks correctly - Best Gaze 2. Best Gaze: partial gaze palsy - Visual 3. Visual: complete hemianopia - Facial Palsy 4. Facial Palsy: partial paralysis - Motor Arm 5a. Motor Arm Left: some gravity effort 5b. Motor Arm Right: no drift - Motor Leg 6a. Motor Leg Left: drift 6b. Motor Leg Right: no drift - Limb Ataxia 7. Limb Ataxia: absent - Sensory 8. Sensory: mild/moderate sensory loss - Best Language 9. Best Language: no aphasia - Dysarthria 10. Dysarthria: normal - Extinction and Inattention 11. Extinction/Inattention: no abnormality - Scoring Total Score: 9 Stroke Severity: Moderate Stroke Results - Laboratory Findings CBC and BMP: 12/29/19 05:21 12/29/19 05:21 Abnormal Lab Findings: Abnormal Labs 12/28/19 12/28/19 12/28/19 15:26 15:26 15:26 WBC 18.9 H RBC Hgb Hct MCHC 35 H RDW 13.1 L Lymph % (Auto) 11.2 L Camp % (Auto) 7.8 H Camp # 1.5 H Seg Neutrophils % 80.3 H Seg Neutrophils # 15.2 H D-Dimer Potassium 2.8 L* Chloride 97.1 L Creatinine 0.7 L Glucose 170 H Hemoglobin A1c 9.1 H Total Creatine Kinase 181 H CK-MB (CK-2) 4.1 H Triglycerides Cholesterol HDL Cholesterol 12/28/19 12/29/19 12/29/19 18:15 05:21 05:21 WBC 14.6 H RBC 5.20 H Hgb 16.1 H Hct 46.8 H MCHC 35 H RDW Lymph % (Auto) Camp % (Auto) 8.9 H Camp # 1.3 H Seg Neutrophils % 72.2 H Seg Neutrophils # 10.5 H D-Dimer 421.86 H Potassium 3.4 L D Chloride 95.1 L Creatinine 0.5 L Glucose 242 H Hemoglobin A1c Total Creatine Kinase CK-MB (CK-2) Triglycerides 223 H Cholesterol 211 H HDL Cholesterol 62 H Assessment and Plan Patient is a 64 y/o man w/ a h/o HTN, DM, CAD, and current smoker, who p/w left sided weakness. According to the patient's clinical findings, it is likely that the patient has had a stroke. Plan: 1. Stroke: - MRI brain: Pending - CTA head/neck: Pending. - CT head: No acute abnormalities. - Echo: Pending - Cont. ASA - Cont. statin. LDL goal <70 - Telemetry monitoring while in house - PT/OT/ST - DVT Ppx: Recommend lovenox - Recommended for patient to stop smoking. 2. Hypertension: - Recommend BP goal of <220/120 to allow for permissive HTN for first 24-48 hours. Can target normotension after that. - Will continue to monitor patient. Thank you for allowing me to take part in the care of this patient. Guanako Martinez MD Neurology This clinical encounter was provided via live telemedicine platform. Consultative service was provided for neurology to support local providers. The Acute Teleneurology team should be contacted with any neurologic worsening or clinical changes, new test results, or new patient history that is reported to or discovered by the local team following completion of the teleneurology consultation, specifically that which has the potential to impact the consultative recommendations. Patient/Family was informed the Neurology Consult would happen via TeleHealth consult by way of interactive audio and video telecommunications and consented to receiving care in this manner. Due to the potential for life-threatening deterioration due to underlying neurologic illness, and limited resources available for patient care, telemedicine was used as means of patient care. Telemedicine consultation is limited in the extent of physical exam that can be virtually provided. Time spent evaluating patient includes time for face to face visit via telemedicine, review of medical records, imaging studies and discussion of findings with providers, the patient and/or family.
--- NOTE | 2019-12-29 15:30 | Cat Scan Report ---
CTA neck without and with intravenous contrast material CLINICAL HISTORY: stroke, LLE weakness TECHNIQUE: Following acquisition of a timing bolus 0.625 mm thick contiguous axial scans were obtained from aort ic arch to the skull base during rapid bolus intravenous contrast infusion. In addition to evaluation of axial source images multiplanar reconstructions were produced and reviewed for this report. 3 tahir ne MIP reconstructions were produced and reviewed. Contrast dose report: Omnipaque 350: 100 ml, administered intravenously All CT examinations performed at this facility utilize modulated dose reduction, iterative reconstruc tion or weight-based dosing, as appropriate, to obtain a radiation dose which is as low as can reason ably be achieved. FINDINGS: Thoracic aorta:No abnormalities are identified along the course of the thoracic aorta..The origins of the great vessels have an unremarkable appearance. Brachiocephalic artery, left common carotid arter y origin and left subclavian artery all have an unremarkable appearance. Right carotid artery: Mildly calcified atherosclerotic plaque is observed along the course of the pro ximal R ICA. There is no associated stenosis. Common carotid artery and carotid bifurcation have norm al appearance. Left carotid artery: Oblique calcified atherosclerotic plaque is seen at the right carotid bulb in se veral locations along the course of the LICA. There is no associated stenosis. Posterior circulation:The vertebral arteries have an unremarkable appearance. Left vertebral artery i s dominant. Both vertebral arteries contribute to the basilar artery origin. The basilar artery has a n unremarkable appearance. The degree of stenosis, if any, is determined utilizing NASCET like criteria. In this case there is no indication of hemodynamically significant stenosis at the carotid bifurcations or elsewhere. Evaluation of the nonvascular soft tissue structures reveal no abnormality. There is no indication of cervical lymphadenopathy. No abnormalities are seen along the course of the airway. Visualized porti ons of the parotid glands and the submandibular salivary glands have a normal appearance. Thyroid gla nd has a normal appearance. Evaluation of the lung apices reveals no evidence of lung nodule or infil trate. Aeration of the cervical spine is remarkable for widespread cervical spondylosis. Loss of disc height and anterior and posterior osteophyte formation are noted at multiple levels. This is most pronounce d at the C5-6 and C6-7 levels. Multifocal neuroforaminal narrowing is noted. There is no indication o f central canal stenosis. IMPRESSION: 1. No indication of hemodynamically significant stenosis at the carotid bifurcations or elsewhere. Signer Name: Jefferson Knight MD Signed: 12/29/2019 3:26 PM Workstation Name: [id number]
--- NOTE | 2019-12-29 15:43 | Cat Scan Report ---
CTA head with intravenous contrast CLINICAL HISTORY: stroke, LLE weakness TECHNIQUE: 0.625 mm thick contiguous axial scans were obtained from the skull base to the skull vertex during r apid bolus administration of intravenous contrast material. Multiplanar reconstructions were produced in the coronal and sagittal planes. In addition 3 plane MIP instructions were produced and reviewed for this report. The axial source images and reconstructed images were reviewed for this report. CONTRAST DOSE REPORT: Omnipaque 350: 100 ml administered intravenously. All CT scans at this location are performed using CT dose reduction for ALARA by means of automated e xposure control. FINDINGS: Internal carotid arteries: Calcified atherosclerotic plaque is seen along the course of the cavernous segments of both internal carotid arteries. There is no associated stenosis. Petrous portions, ophth almic segments and clinoid and supraclinoid segments of the internal carotid arteries all have an unr emarkable appearance. Middle cerebral arteries: Normal and symmetrical M1 segments of the middle cerebral arteries are demo nstrated. No abnormalities are observed on evaluation of the insular or opercular branches of the mid dle cerebral arteries. Anterior cerebral arteries: Ventricles are 1 segments are demonstrated. A well-defined anterior commu nicating artery is identified. The A2 segments of the anterior cerebral arteries and their pericallos al branches have an unremarkable appearance. Vertebral arteries: Left vertebral artery is dominant. Both vertebral arteries contribute to the basi lar artery origin. Basilar artery has a normal appearance. Basilar artery: Basilar artery has a normal appearance. Posterior cerebral arteries: Large bilateral posterior communicating arteries are demonstrated. Tenisha l and symmetrical P2 and P3 segments the posterior cerebral arteries are observed. Dural sinuses: Dural venous sinuses are well demonstrated on this exam. There is no evidence of dural sinus thrombosis. IMPRESSION: 1. No significant abnormality on CTA head. 2. This patient has an intact [place]. Signer Name: Jefferson Knight MD Signed: 12/29/2019 3:39 PM Workstation Name: [id number]
[2019-12-29] MEDS: INSULIN GLARGINE 100 UNITS/ML SUB-Q SCH (21:52)
[2019-12-30] MEDS: HEPARIN 5,000 UNIT/1 ML VIAL SUB-Q SCH ×3 (05:57→21:35)
[2019-12-30] MEDS: SODIUM CHLORIDE 0.9% 1000 ML 1,000 ML IV SCH (05:57)
[2019-12-30] MEDS ORDERED: LORazepam 2 MG/ML VIAL IV NR ×2 (06:38→09:00)
[2019-12-30 08:56] LABS: Basophils % (Auto) 0.2 % (0.0-1.8); Eosinophils % (Auto) 0.4 % (0.0-4.3); Hematocrit 46.2 % (35.5-45.6); Hemoglobin 16.1 gm/dl (11.8-15.2); Lymphocytes # (Auto) 1.7 K/mm3 (1.2-5.4); Lymphocytes % (Auto) 12.6 % (13.4-35.0); Mean Corpuscular HGB Conc 35 % (32-34); Mean Corpuscular Volume 89 fl (84-94); Monocytes # (Auto) 0.9 K/mm3 (0.0-0.8); Monocytes % (Auto) 6.7 % (0.0-7.3); Platelet Count 412 K/mm3 (140-440); Red Blood Count 5.18 M/mm3 (3.65-5.03); Red Cell Distribution Width 13.2 % (13.2-15.2)
[2019-12-30] MEDS: INSULIN LISPRO 100 UNIT/ML VIAL 3 mL SUB-Q SCH ×4 (09:10→21:35)
[2019-12-30] MEDS: ASPIRIN 325 MG TAB PO SCH (09:18)
[2019-12-30 09:22] LABS: Alanine Aminotransferase 14 units/L (7-56); Albumin 4.4 g/dL (3.9-5); Blood Urea Nitrogen 10 mg/dL (9-20); Calcium 9.7 mg/dL (8.4-10.2); Hemolysis Index 2
[2019-12-30 09:23] LABS: BUN/Creatinine Ratio 20
--- NOTE | 2019-12-30 13:22 | Progress Note ---
Assessment and Plan Assessment and plan: 64 years old male with history of hypertension, and diabetes presented to emergency room via EMS for evaluation of left leg weakness. Patient stated that he woke up around 7 AM and he wanted to walk and then his left leg gave up on him and fell. Patient stated that he did not hit his head or neck but bruised his left fore arm. he denied any visual symptoms or speech symptoms. Patient also denied any back pain or neck pain or any recent injury. Last when known time was 2:30 AM the night prior to presentation Here in the ER, telemetry neurology was consulted and he was deemed outside the window for TPA administration. Patient was started on aspirin and admitted to the hospital for further evaluation His CT head showed no acute stroke. He has chronic infarcts. 12/28. Patient seen and examined at bedside this morning. Patient has left- sided weakness. CTA head and neck, MRI brain pending. PT/OT ordered. Neurology on board 12/29. MRI not done as he was very claustrophobic despite getting ativan. Will get Stat CT head instead. PT recommends SNF placement - Patient Problems (1) Cerebrovascular accident Current Visit: Yes Status: Acute Qualifiers: Laterality of affected vessel: left Plan to address problem: Patient has left-sided weakness on exam. CT head performed on admission showed no acute infarct but showed chronic infarct. Patient is on aspirin 325 mg and statins CTA head and neck - negative for stenosis MRI brain not able to be performed as he was clasutrophobic. Repeat CT head to be done Echocardiogram - ve for shunt or PFO Patient has been advised to stop tobacco abuse (2) Hypertensive urgency Current Visit: Yes Status: Acute Plan to address problem: Continue to monitor blood pressure closely. Maintain permissive hypertension for 24 to 48 hours (3) Hypokalemia Current Visit: Yes Status: Acute Plan to address problem: Replete potassium and monitor (4) Neutrophilic leukocytosis Current Visit: Yes Status: Acute Plan to address problem: Improved. UA and chest xray shows no UTI or PNA. Continue to monitor (5) Type 2 diabetes mellitus Current Visit: Yes Status: Chronic Qualifiers: Diabetes mellitus skilled nursing insulin use: without skilled nursing use Plan to address problem: Continue sliding scale insulin for now and resume home glipizide at discharge. Add lantus at night Hb A1C 9.1 (6) DVT prophylaxis Current Visit: Yes Status: Acute Plan to address problem: Lovenox History Interval history: See assessment and plan Hospitalist Physical - Constitutional Vitals: Temp Pulse Resp BP Pulse Ox 98.2 F 95 H 18 178/112 98 12/30/19 04:28 12/30/19 04:28 12/30/19 04:28 12/30/19 04:28 12/30/19 04:28 General appearance: Present: no acute distress, well-nourished - EENT Eyes: Present: PERRL - Neck Neck: Present: supple - Respiratory Respiratory: bilateral: CTA - Cardiovascular Rhythm: regular Heart Sounds: Present: S1 & S2 - Extremities Extremities: No edema - Abdominal General gastrointestinal: soft, non-tender - Psychiatric Psychiatric: appropriate mood/affect - Neurologic Neurologic: focal deficits HEART Score - HEART Score Troponin: Troponin T < 0.010 ng/mL (0.00-0.029) 12/28/19 15:26 Results - Labs CBC & Chem 7: 12/30/19 08:41 12/30/19 08:41 Labs: Laboratory Last Values WBC 13.8 K/mm3 (4.5-11.0) H 12/30/19 08:41 RBC 5.18 M/mm3 (3.65-5.03) H 12/30/19 08:41 Hgb 16.1 gm/dl (11.8-15.2) H 12/30/19 08:41 Hct 46.2 % (35.5-45.6) H 12/30/19 08:41 MCV 89 fl (84-94) 12/30/19 08:41 MCH 31 pg (28-32) 12/30/19 08:41 MCHC 35 % (32-34) H 12/30/19 08:41 RDW 13.2 % (13.2-15.2) 12/30/19 08:41 Plt Count 412 K/mm3 (140-440) 12/30/19 08:41 Lymph % (Auto) 12.6 % (13.4-35.0) L 12/30/19 08:41 [place] % (Auto) 6.7 % (0.0-7.3) 12/30/19 08:41 Eos % (Auto) 0.4 % (0.0-4.3) 12/30/19 08:41 Baso % (Auto) 0.2 % (0.0-1.8) 12/30/19 08:41 Lymph # 1.7 K/mm3 (1.2-5.4) 12/30/19 08:41 [place] # 0.9 K/mm3 (0.0-0.8) H 12/30/19 08:41 Eos # 0.0 K/mm3 (0.0-0.4) 12/30/19 08:41 Baso # 0.0 K/mm3 (0.0-0.1) 12/30/19 08:41 Seg Neutrophils % 80.1 % (40.0-70.0) H 12/30/19 08:41 Seg Neutrophils # 11.0 K/mm3 (1.8-7.7) H 12/30/19 08:41 PT 13.4 Sec. (12.2-14.9) 12/28/19 15:26 INR 1.00 (0.87-1.13) 12/28/19 15:26 APTT 26.3 Sec. (24.2-36.6) 12/28/19 15:26 Thrombin Time 16.3 Sec. (15.1-19.6) 12/28/19 15:26 D-Dimer 421.86 ng/mlDDU (0-234) H 12/28/19 18:15 Sodium 139 mmol/L (137-145) 12/30/19 08:41 Potassium 3.6 mmol/L (3.6-5.0) 12/30/19 08:41 Chloride 97.0 mmol/L (98-107) L 12/30/19 08:41 Carbon Dioxide 26 mmol/L (22-30) 12/30/19 08:41 Anion Gap 20 mmol/L 12/30/19 08:41 BUN 10 mg/dL (9-20) 12/30/19 08:41 Creatinine 0.5 mg/dL (0.8-1.3) L 12/30/19 08:41 Estimated GFR > 60 ml/min 12/30/19 08:41 BUN/Creatinine Ratio 20 % 12/30/19 08:41 Glucose 228 mg/dL (75-100) H 12/30/19 08:41 POC Glucose 198 (70-105) H 12/30/19 09:22 Hemoglobin A1c 9.1 % (4-6) H 12/28/19 15:26 Calcium 9.7 mg/dL (8.4-10.2) 12/30/19 08:41 Magnesium 1.70 mg/dL (1.7-2.3) 12/28/19 15:26 Total Bilirubin 0.80 mg/dL (0.1-1.2) 12/30/19 08:41 Direct Bilirubin < 0.2 mg/dL (0-0.2) 12/28/19 15:26 Indirect Bilirubin 0.3 mg/dL 12/28/19 15:26 AST 14 units/L (5-40) 12/30/19 08:41 ALT 14 units/L (7-56) 12/30/19 08:41 Alkaline Phosphatase 95 units/L (35-129) 12/30/19 08:41 Total Creatine Kinase 181 units/L (55-170) H 12/28/19 15:26 CK-MB (CK-2) 4.1 ng/mL (0.0-4.0) H 12/28/19 15:26 CK-MB (CK-2) Rel Index 2.2 (0-4) 12/28/19 15:26 Troponin T < 0.010 ng/mL (0.00-0.029) 12/28/19 15:26 Total Protein 7.4 g/dL (6.3-8.2) 12/30/19 08:41 Albumin 4.4 g/dL (3.9-5) 12/30/19 08:41 Albumin/Globulin Ratio 1.5 % 12/30/19 08:41 Triglycerides 223 mg/dL (2-149) H 12/29/19 05:21 Cholesterol 211 mg/dL (50-199) H 12/29/19 05:21 LDL Cholesterol Direct 128 mg/dL (50-130) 12/29/19 05:21 HDL Cholesterol 62 mg/dL (40-59) H 12/29/19 05:21 Cholesterol/HDL Ratio 3.40 % 12/29/19 05:21 Urine Color Yellow (Yellow) 12/28/19 17:51 Urine Turbidity Slightly-cloudy (Clear) 12/28/19 17:51 Urine pH 7.0 (5.0-7.0) 12/28/19 17:51 Ur Specific [place] 1.010 (1.003-1.030) 12/28/19 17:51 Urine Protein <15 mg/dl mg/dL (Negative) 12/28/19 17:51 Urine Glucose (UA) 50 mg/dL (Negative) 12/28/19 17:51 Urine Ketones Neg mg/dL (Negative) 12/28/19 17:51 Urine Blood Neg (Negative) 12/28/19 17:51 Urine Nitrite Neg (Negative) 12/28/19 17:51 Urine Bilirubin Neg (Negative) 12/28/19 17:51 Urine Urobilinogen < 2.0 mg/dL (<2.0) 12/28/19 17:51 Ur Leukocyte Esterase Neg (Negative) 12/28/19 17:51 Urine WBC (Auto) 2.0 /HPF (0.0-6.0) 12/28/19 17:51 Urine RBC (Auto) 1.0 /HPF (0.0-6.0) 12/28/19 17:51 Urine Mucus Few /HPF 12/28/19 17:51 Urine Yeast (Budding) Few /HPF 12/28/19 17:51 Coronavirus (PCR) Negative (Negative) 12/28/19 Unknown Rangel/IV: Voiding Method Condom Catheter IV Catheter Type [Right Peripheral IV Forearm] IV Catheter Type [Right INT / Saline Lock Antecubital] Active Medications - Current Medications Current Medications: Generic Name Dose Route Start Last Admin Trade Name Freq PRN Reason Stop Dose Admin Acetaminophen 650 mg 12/28/19 17:48 12/29/19 09:03 Tylenol PO 650 mg Q4H PRN Administration Pain MILD(1-3)/Fever >100.5/NAGEL Aspirin 325 mg 12/29/19 10:00 12/30/19 09:18 Aspirin PO 325 mg QDAY HALEIGH Administration Atorvastatin Calcium 40 mg 12/28/19 22:00 12/29/19 21:51 Lipitor PO 40 mg QHS HALEIGH Administration Bisacodyl 10 mg 12/28/19 17:48 Dulcolax SC QDAY PRN Constipation Dextrose 50 ml 12/28/19 17:48 D50w (25gm) Syringe IV Q30MIN PRN Hypoglycemia Protocol Docusate Sodium 100 mg 12/28/19 17:48 Colace PO BID PRN Constipation Heparin Sodium (Porcine) 5,000 unit 12/28/19 22:00 12/30/19 05:57 Heparin SUB-Q 5,000 unit Q8HR HALEIGH Administration Sodium Chloride 1,000 mls @ 42 mls/hr 12/28/19 18:00 12/30/19 05:57 Nacl 0.9% 1000 Ml IV 42 mls/hr DIRECT HALEIGH Administration Insulin Glargine 10 units 12/29/19 22:00 12/29/19 21:52 Lantus SUB-Q 10 units QHS HALEIGH Administration Insulin Human Lispro 0 unit 12/28/19 22:00 12/30/19 09:10 Humalog SUB-Q 300 unit ACHS HALEIGH Administration Protocol Labetalol HCl 10 mg 12/28/19 17:48 Labetalol IV Q5MIN PRN to maintain SBP < 180 Lorazepam 2 mg 12/30/19 09:00 12/30/19 11:26 Ativan IV 12/30/19 17:00 2 mg ONCE NR Administration Magnesium Hydroxide 30 ml 12/28/19 17:48 Milk Of Magnesia PO Q4H PRN Constipation Metoclopramide HCl 10 mg 12/28/19 17:48 Reglan PO Q6H PRN Nausea And Vomiting Ondansetron HCl 4 mg 12/28/19 17:48 Zofran IV Q8H PRN Nausea And Vomiting Promethazine HCl 25 mg 12/28/19 17:48 Phenergan SC Q6H PRN Nausea And Vomiting Sodium Chloride 10 ml 12/28/19 22:00 12/30/19 09:18 Sodium Chloride Flush Syringe 10 Ml IV 10 ml BID HALEIGH Administration Sodium Chloride 10 ml 12/28/19 17:48 Sodium Chloride Flush Syringe 10 Ml IV PRN PRN LINE FLUSH Nutrition/Malnutrition Assess - Dietary Evaluation Nutrition/Malnutrition Findings: Nutrition Notes Start: 12/30/19 10:37 Freq: Status: Active Protocol: Document 12/30/19 10:37 AB (Rec: 12/30/19 11:52 AB [id number]) Co-Sign 12/30/19 10:37 LM Nutrition Notes Need for Assessment generated from: MD Order Initial or Follow up Assessment Current Diagnosis Diabetes,Hypertension,Stroke Current Diet Pureed diet with thin liquids Labs/Tests 12/28 BG 242 Cr 0.5 Cl 95.1 K 3.4 Cholesterol 211 TG 223 Pertinent Medications Lipitor Heparin Height 5 ft 8 in Weight 74.8 kg [place] Body Weight (kg) 70.00 BMI 25.0 Intake Prior to Admission Excellent Weight change and time frame 6% wt loss in 1 month Weight Status Overweight Subjective/Other Information Consult for CVA diet education Patient stated that he eats 2 meals which are breakfast and dinner and that consists of grilled meats and cooked vegetables. Patient was interested in hearing about diet education and did not have any questions to ask Burn Absent Trauma Absent GI Symptoms None Difficulty In Swallowing Food Allergy No Current % PO Good (75-100%) Minimum of two criteria Yes Energy Intake (non-severe) <75% Estimated Energy Requirement >7 days Interpretation of Weight Loss (severe) >5% in 1 month Reduced Transplant Case Manager Strength Measurably Reduced (severe) Is patient on ventilator? No Is Patient Ambulatory and/or Out of Bed Yes REE-([facility]-ambulatory/OOB) [ 1972.750 [id number]] Calculation Used for Recommendations [facility][1] Additional Notes Protein needs are 75-90 g/kg ( 1.0-1.2 g/kg) Fluids needs are 1 ml/kcal Nutrition Intervention Change Diet Order: Continue Teaching Recipient Patient Learning Readiness Fair Teaching Methods Handout Response to Teaching Reinforcement needed Education Handouts Provided heart healthy. carbohydrate counting, pureed diet Barriers to Learning Motivation RD phone number provided Yes Patient aware of follow up options Yes Goal #1 Continue to meet atleast 80% of energy and protein needs Goal #2 Maintain current weight Follow-Up By: 01/05/20 Additional Comments F/U for intakes
--- NOTE | 2019-12-30 14:21 | Cat Scan Report ---
CT head/brain wo con INDICATION: Reevaluate CVA. TECHNIQUE: Routine CT head without contrast. All CT scans at this location are performed using CT dos e reduction for ALARA by means of automated exposure control. COMPARISON: Head CT on 12/28/2019 FINDINGS: BRAIN / INTRACRANIAL CONTENTS: There is new hypoattenuation in the right posterior limb of the internist medical doctor md al capsule consistent with an evolving lacunar infarct. There are otherwise stable chronic appearing bilateral lacunar infarcts in the basal ganglia. There is no associated hemorrhage or adverse mass ef fect. There is no adverse change from the prior exam. ORBITS: No significant abnormality of visualized orbits. SINUSES / MASTOIDS: No significant abnormality of visualized sinuses and mastoid air cells. ADDITIONAL FINDINGS: None. IMPRESSION: 1. Increasing hypoattenuation in the right posterior limb of the internal capsule consistent with beltran lving acute lacunar infarct. No associated hemorrhage or adverse mass effect. Signer Name: Luisito Myers MD Signed: 12/30/2019 2:17 PM Workstation Name: [id number]
--- NOTE | 2019-12-30 15:03 | Magnetic Resonance Report ---
MRI BRAIN WITHOUT CONTRAST INDICATION / CLINICAL INFORMATION: Stroke. TECHNIQUE: Multiplanar, multisequence MR images of the brain were obtained. COMPARISON: Head CT on 12/28/2019. FINDINGS: BRAIN / INTRACRANIAL CONTENTS: There is an acute lacunar infarct in the right posterior limb of the i nternal capsule. There is no other acute infarct. There is no associated hemorrhage or adverse mass e ffect. Remainder of the brain demonstrates normal ventricular and cisternal size. Otherwise stable ch ronic lacunar infarcts in the bilateral basal ganglia. CRANIOCERVICAL JUNCTION: No significant abnormality. VASCULAR FLOW-VOIDS: No significant abnormality. ORBITS: No significant abnormality of visualized orbits. SINUSES / MASTOIDS: No significant abnormality of visualized sinuses and mastoid air cells. ADDITIONAL FINDINGS: None. IMPRESSION: 1. Acute lacunar infarct in the right posterior limb of the internal capsule. Signer Name: Luisito Myers MD Signed: 12/30/2019 2:58 PM Workstation Name: [id number]
--- NOTE | 2019-12-30 16:29 | Progress Note ---
Assessment and Plan Patient is a 64 y/o man w/ a h/o HTN, DM, CAD, and current smoker, who p/w left sided weakness. According to the patient's clinical findings, it is likely that the patient has had a stroke. Plan: 1. Stroke: - MRI brain: Right subcortical infarct noted. - CTA head/neck: No significant stenosis. -Initial CT head: No acute abnormalities. - Repeat CT head: evolving right subcortical infarct. - Echo: Technically difficult study, therefore LA size and bubble study not done. EF 50-55%. - Recommend dual antiplatelet therapy with aspirin 81 mg daily and Plavix 75 mg daily for 30 days, after which Plavix can be stopped. Discussed risks and benefits of dual antiplatelet therapy with patient, including hemorrhage, and patient agreed to take this. - Cont. statin. LDL goal <70 - Telemetry monitoring while in house - PT/OT/ST - DVT Ppx: Recommend lovenox - Recommended for patient to stop smoking. - As echo was technically difficult study, and cardiac source of stroke can not entirely be ruled out, would recommend long-term cardiac monitoring w/ 30-day MCOT or ILR with cardiology as outpatient. - Also recommend follow up with neurology clinic in 3-4 weeks. 2. Hypertension: - Recommend BP goal of normotension. - Will sign off, as neurologic workup is complete and treatment plan is in place. Please call with any questions. Thank you for allowing me to take part in the care of this patient. Guanako Martinez MD Neurology This clinical encounter was provided via live telemedicine platform. Consultative service was provided for neurology to support local providers. The Acute Teleneurology team should be contacted with any neurologic worsening or clinical changes, new test results, or new patient history that is reported to or discovered by the local team following completion of the teleneurology consultation, specifically that which has the potential to impact the consultative recommendations. Patient/Family was informed the Neurology Consult would happen via TeleHealth consult by way of interactive audio and video telecommunications and consented to receiving care in this manner. Due to the potential for life-threatening deterioration due to underlying neurologic illness, and limited resources available for patient care, telemedicine was used as means of patient care. Telemedicine consultation is stein ited in the extent of physical exam that can be virtually provided. Time spent evaluating patient includes time for face to face visit via telemedicine, review of medical records, imaging studies and discussion of findings with providers, the patient and/or family. Subjective Date of service: 12/30/19 Principal diagnosis: Stroke Interval history: No acute events overnight. Objective - Exam Narrative Exam: Patient is alert, awake, oriented x4, follows complex commands. No dysarthria or aphasia noted. PERRL, right gaze preference,VFF, tongue midline, bilaterally intact to LT, left lower facial weakness noted. 5/5 strength in RUE/RLE, 2/5 in LUE, 3/5 in LLE. Decreased on left to light touch. - Vital Sign Vital Signs - 12hr 12/30/19 12/30/19 12/30/19 04:28 07:42 13:29 Temperature 98.2 F 97.9 F 97.9 F Pulse Rate 95 H 97 H 97 H Respiratory 18 18 18 Rate Blood Pressure 178/112 157/119 Blood Pressure 157/119 [Right] O2 Sat by Pulse 98 99 Oximetry - Laboratory Findings CBC and BMP: 12/30/19 08:41 12/30/19 08:41 Abnormal Lab Findings: Abnormal Labs 12/28/19 12/28/19 12/28/19 15:26 15:26 15:26 WBC 18.9 H RBC Hgb Hct MCHC 35 H RDW 13.1 L Lymph % (Auto) 11.2 L Jewell % (Auto) 7.8 H [place]ell # 1.5 H Seg Neutrophils % 80.3 H Seg Neutrophils # 15.2 H D-Dimer Potassium 2.8 L* Chloride 97.1 L Creatinine 0.7 L Glucose 170 H POC Glucose Hemoglobin A1c 9.1 H Total Creatine Kinase 181 H CK-MB (CK-2) 4.1 H Triglycerides Cholesterol HDL Cholesterol 12/28/19 12/29/19 12/29/19 18:15 05:21 05:21 WBC 14.6 H RBC 5.20 H Hgb 16.1 H Hct 46.8 H MCHC 35 H RDW Lymph % (Auto) Jewell % (Auto) 8.9 H Jewell # 1.3 H Seg Neutrophils % 72.2 H Seg Neutrophils # 10.5 H D-Dimer 421.86 H Potassium 3.4 L D Chloride 95.1 L Creatinine 0.5 L Glucose 242 H POC Glucose Hemoglobin A1c Total Creatine Kinase CK-MB (CK-2) Triglycerides 223 H Cholesterol 211 H HDL Cholesterol 62 H 12/30/19 12/30/19 12/30/19 08:41 08:41 09:22 WBC 13.8 H RBC 5.18 H Hgb 16.1 H Hct 46.2 H MCHC 35 H RDW Lymph % (Auto) 12.6 L Jewell % (Auto) Jewell # 0.9 H Seg Neutrophils % 80.1 H Seg Neutrophils # 11.0 H D-Dimer Potassium Chloride 97.0 L Creatinine 0.5 L Glucose 228 H POC Glucose 198 H Hemoglobin A1c Total Creatine Kinase CK-MB (CK-2) Triglycerides Cholesterol HDL Cholesterol
[2019-12-30] MEDS: INSULIN GLARGINE 100 UNITS/ML SUB-Q SCH (21:35)
[2019-12-31 05:39] VITALS: BP 146/97
[2019-12-31] MEDS: HEPARIN 5,000 UNIT/1 ML VIAL SUB-Q SCH ×2 (05:49→13:02)
[2019-12-31] MEDS: SODIUM CHLORIDE 0.9% 1000 ML 1,000 ML IV SCH (05:49)
[2019-12-31] MEDS: INSULIN LISPRO 100 UNIT/ML VIAL 3 mL SUB-Q SCH ×2 (09:23→12:57)
[2019-12-31] MEDS ORDERED: ASPIRIN EC 81 MG TAB PO SCH (10:00)
[2019-12-31] MEDS ORDERED: CLOPIDOGREL 75 MG TAB PO SCH (10:00)
--- NOTE | 2019-12-31 11:52 | Discharge Summary ---
Providers - Providers Date of Admission: 12/28/19 17:50 Date of discharge: 12/31/19 Attending physician: MIKI DOS SANTOS 12/28/19 17:48 Consult to Physician [CONS] Routine Comment: Consulting Provider: SMILEY PABON Physician Instructions: Reason For Exam: stroke 12/28/19 17:50 Consult to Case Management [CONS] Routine Services Needed at Discharge: Director Of Workforce Development Physical Therapy Occupational Therapy Notified:: manager of casemanager management Therapy Evaluate and Treat [CONS] Routine Comment: Reason For Exam: Neuro deficits Physical Therapy Evaluation and Treat [CONS] Routine Comment: Reason For Exam: Neuro deficits 12/29/19 14:32 Speech Therapy Evaluation and Treat [CONS] Routine Reason For Exam: Stroke 12/29/19 14:33 Consult to Dietitian/Nutrition [CONS] Routine Physician Instructions: Stroke. Please educate patient on diet. Thank you! Reason For Exam: Reason for Consult: Diet education [facility] Condition: Stable Hospital course: 64 years old male with history of hypertension, and diabetes presented to emergency room via EMS for evaluation of left leg weakness. Patient stated that he woke up around 7 AM and he wanted to walk and then his left leg gave up on him and fell. Patient stated that he did not hit his head or neck but bruised his left fore arm. he denied any visual symptoms or speech symptoms. Patient also denied any back pain or neck pain or any recent injury. Last when known time was 2:30 AM the night prior to presentation Here in the ER, telemetry neurology was consulted and he was deemed outside the window for TPA administration. Patient was started on aspirin and admitted to the hospital for further evaluation His CT head showed no acute stroke. He has chronic infarcts. 12/28. Patient seen and examined at bedside this morning. Patient has left- sided weakness. CTA head and neck, MRI brain pending. PT/OT ordered. Neurology on board 12/29. MRI not done as he was very claustrophobic despite getting ativan. Will get Stat CT head instead. PT recommends SNF placement but he has no insurance. Discussed with daughter who agrees to take patient home. Plan to arrange PT for him as well. CM Disposition: DC-01 TO HOME OR SELFCARE - Discharge Diagnoses (1) Cerebrovascular accident Status: Acute Qualifiers: Laterality of affected vessel: left (2) Hypertensive urgency Status: Acute (3) Hypokalemia Status: Acute (4) Neutrophilic leukocytosis Status: Acute (5) Type 2 diabetes mellitus Status: Chronic Qualifiers: Diabetes mellitus keno terminal operator insulin use: without residential use (6) DVT prophylaxis Status: Acute Core Measure Documentation - Palliative Care Palliative Care/ Comfort Measures: Not Applicable - Core Measures Any of the following diagnoses?: none Exam - Constitutional Vitals: Temp Pulse Resp BP Pulse Ox 98.1 F 84 18 146/97 98 12/31/19 03:20 12/31/19 03:20 12/31/19 03:20 12/31/19 03:20 12/31/19 11:20 General appearance: Present: no acute distress, well-nourished - EENT Eyes: Present: PERRL ENT: hearing intact, clear oral mucosa - Neck Neck: Present: supple, normal ROM - Respiratory Respiratory effort: normal Respiratory: bilateral: CTA - Cardiovascular Heart Sounds: Present: S1 & S2. Absent: rub, click - Extremities Extremities: pulses symmetrical, No edema Peripheral Pulses: within normal limits - Abdominal General gastrointestinal: Present: soft, non-tender, non-distended, normal bowel sounds Male genitourinary: Present: normal - Integumentary Integumentary: Present: clear, warm, dry - Musculoskeletal Musculoskeletal: gait normal, strength equal bilaterally - Psychiatric Psychiatric: appropriate mood/affect, intact judgment & insight - Neurologic Neurologic: CNII-XII intact, moves all extremities Plan Additional Instructions: Continue medications as prescribed - Continue aspirin indefinitely. Take Plavix for 30 days. Stop tobacco abuse. Follow-up with neurology in 2 to 3 weeks. Follow up with: GREGORY EDWARD MD [Primary Care Provider] - 7 Days SMILEY PABON MD [Staff Physician] - 7 Days Prescriptions: AtorvaSTATin [Lipitor] 80 mg PO QHS #60 tablet glipiZIDE [Glucotrol] 5 mg PO BID #60 Aspirin EC [Halfprin EC] 81 mg PO QDAY #60 tablet metFORMIN 500 mg PO BID #60 Metoprolol 50 mg PO BID #60 Clopidogrel [Plavix] 75 mg PO QDAY #60 tablet
== END 2019-12-31 15:40 | disposition home or self-care (01) | DRG 65 ==
LOC: ED 14:17 → 4A 17:50 → OBSVTOIN 17:50 → 4A 18:48
PROVIDERS: ADMIT Internal Medicine; ATTEND Internal Medicine
DX: I63.9 Cerebral infarction, unspecified (principal); G81.94 Hemiplegia, unspecified affecting left nondominant side; E87.6 Hypokalemia; I16.0 Hypertensive urgency; I10 Essential (primary) hypertension; E11.9 Type 2 diabetes mellitus without complications; F17.210 Nicotine dependence, cigarettes, uncomplicated; I25.10 Atherosclerotic heart disease of native coronary artery without angina pectoris; D72.829 Elevated white blood cell count, unspecified; Z20.828 Contact with and (suspected) exposure to other viral communicable diseases; W18.30XA Fall on same level, unspecified, initial encounter; Y93.89 Activity, other specified; Y92.89 Other specified places as the place of occurrence of the external cause; Y99.8 Other external cause status
CPT/HCPCS: 36415; 70450; 70496; 70498; 70551; 71045; 80048; 80053; 80061; 80076; 81001; 82550; 82553; 82962; 83036; 83735; 84484; 85025; 85379; 85610; 85670; 85730; 93005; 93306; G0378; A9270-GY; J1644; J1815; J2060; J3480; J7030; Q9967; U0003-CS